=== PATIENT | male | born 1955 | race Caucasian/White ===

== ENCOUNTER 2019-06-12 08:18 | Outpatient (CLI) | payer OTHER, SELFPAY ==
--- NOTE | 2019-06-12 09:00 | EST_ITS ---
Patient Info Name: Yevgeniy Griffith Age: 64 years : 1955 Gender: Male Ht: 69 in Wt: 208 lbs BSA: 2.17 m2 HR: 155 bpm BP: 206 / 78 mmHg Heart Rhythm: Sinus Rhythm Technical Quality: Excellent Exam Date: 06/12/2019 8:38 AM Exam Location: [facility] Patient Status: Outpatient Admit Date: 06/12/2019 Staff Ordering Physician: Matthew Galicia MD Attending Provider: Matthew Galicia MD Referring Physician: Matthew Galicia; Exercise Technologist: Mitali Brambila CRT Exercise Physician: Irina Schultz CEP Exam Type: CA stress test treadmill Study Info Indications ChestPain - A treadmill exercise stress test was performed. History/Risk Factors Hypertension: Yes Dyslipidemia: Yes Diabetic Therapy: Oral Congestive Heart Failure (CHF): No Cardiomyopathy/LV Systolic Dysfunction: No Diabetes Mellitus: Yes COPD: No Tobacco Use: Never Cerebrovascular Disease: No Deep Vein Thrombosis (DVT): None Dialysis: None History/Risk Factors Hypertension. Diabetes. Hypercholesterolemia. Frailty Scale (CSHA): 2: Well Cardiac Arrest: No Summary 1. 1. Negative Suraj exercise stress test for ischemic ST changes by ECG criteria. 2. 2. Good functional capacity, achieving 9 METs of workload. 3. 3. Baseline hypertension. 4. 4. Appropriate HR response to exercise. 5. 5. Appropriate HR recovery at 1 minute post exercise. 6. 6. No imaging with stress testing. Protocol: Suraj Stress ECG Details Stage: REST Duration (min): 0 min : 52 sec Speed (mph): 0.0 Grade (%): 0 HR (bpm): 80 SBP (mmHg): 142 DBP (mmHg): 75 METS: --- Stage: REST Duration (min): 20 min : 57 sec Speed (mph): 0.0 Grade (%): 0 HR (bpm): 96 SBP (mmHg): 142 DBP (mmHg): 75 METS: --- Stage: STAGE 1 Duration (min): 1 min : 0 sec Speed (mph): 1.7 Grade (%): 10 HR (bpm): 108 SBP (mmHg): 142 DBP (mmHg): 75 METS: --- Stage: STAGE 1 Duration (min): 2 min : 0 sec Speed (mph): 1.7 Grade (%): 10 HR (bpm): 114 SBP (mmHg): 142 DBP (mmHg): 75 METS: --- Stage: STAGE 1 Duration (min): 3 min : 0 sec Speed (mph): 1.7 Grade (%): 10 HR (bpm): 116 SBP (mmHg): 189 DBP (mmHg): 86 METS: --- Stage: STAGE 2 Duration (min): 1 min : 0 sec Speed (mph): 2.5 Grade (%): 12 HR (bpm): 123 SBP (mmHg): 189 DBP (mmHg): 86 METS: --- Stage: STAGE 2 Duration (min): 2 min : 0 sec Speed (mph): 2.5 Grade (%): 12 HR (bpm): 132 SBP (mmHg): 189 DBP (mmHg): 86 METS: --- Stage: STAGE 2 Duration (min): 3 min : 0 sec Speed (mph): 2.5 Grade (%): 12 HR (bpm): 136 SBP (mmHg): 206 DBP (mmHg): 78 METS: --- Stage: STAGE 3 Duration (min): 1 min : 0 sec Speed (mph): 3.4 Grade (%): 14 HR (bpm): 145 SBP (mmHg): 206 DBP (mmHg): 78 METS: --- Stage: STAGE 3 Duration (min): 2 min : 0 sec Speed (mph):
== END 2019-06-12 08:19 | disposition home or self-care (01) ==
PROVIDERS: PCP Family Medicine; Visit Provider Family Medicine
DX: I20.9 Angina pectoris, unspecified (principal)
CPT/HCPCS: 93017

== ENCOUNTER 2019-10-24 08:49 | Outpatient (CLI) | payer OTHER, SELFPAY | END 2019-10-24 08:50 | disposition home or self-care (01) | LOC: CHSLAB 08:52 | PROVIDERS: PCP Family Medicine; Visit Provider Specialist | DX: D22.5 Melanocytic nevi of trunk (principal) | CPT/HCPCS: 88305; 88342 ==

== ENCOUNTER 2022-07-13 08:49 | Outpatient (CLI) | payer MEDICARE, OTHER, SELFPAY ==
--- NOTE | ~2022-07-13 | XR_ITS ---
XR chest 2V 07/13/2022 09:13 Indication: Chronic cough Procedure: 2 view chest Comparison: 04/22/2007 Findings: Heart size normal. The lungs are hyperinflated which is consistent with, but not diagnostic of chronic obstructive pulmonary disease. No focal air space disease, pulmonary edema, pleural effu abril or suspected pneumothorax. There are healed right rib fractures. No acute osseous abnormality. Impression: 1: No acute cardiopulmonary disease. Reviewed, dictated and finalized at location B. Impression: 1: No acute cardiopulmonary disease.
== END 2022-07-13 08:50 | disposition home or self-care (01) ==
PROVIDERS: PCP Family Medicine; Visit Provider Family Medicine
DX: R05.3 Chronic cough (principal)
CPT/HCPCS: 71046

== ENCOUNTER 2022-07-28 09:47 | Outpatient (CLI) | payer MEDICARE, OTHER, SELFPAY | END 2022-07-28 09:48 | disposition home or self-care (01) | LOC: CHSCARD 09:50 | PROVIDERS: PCP Family Medicine; Visit Provider Family Medicine | DX: R05.3 Chronic cough (principal) | CPT/HCPCS: 94060; 94726; 94729 ==

== ENCOUNTER 2022-11-03 01:43 | Day surgery (SDC) | payer MEDICARE, OTHER, SELFPAY ==
[2022-10-26 12:57] VITALS: BMI 28.8
[2022-11-03 08:18] VITALS: BP 125/73; PULSE 70; RESP 16; TEMP 36.2; O2SAT 100; BMI 25.9
[2022-11-03] MEDS: LACTATED RINGERS 1,000 ML 150 ML IV CONT (08:29)
[2022-11-03 08:31] LABS: Glucose Point of Care 158 mg/dl (65-105)
--- NOTE | 2022-11-03 08:42 | PM.HPGS ---
History of Present Illness History of Present Illness Consent: Risks, benefits, and alternatives have been discussed and questions answered. Patient agrees to proceed with procedure. Chief complaint: hx colon polyps Narrative: Yevgeniy Griffith is a 67 year old male Presents for screening colonoscopy. Patient reports he had a colonoscopy more than 5 years ago that was performed elsewhere. States he is otherwise in good health his current weight appetite and bowel movements are normal. Patient denies abdominal pain. He has had no bleeding. He reports in his family there are multiple cancers of uncertain primary. Review of Systems Review of Systems: Review of systems noncontributory. [facility] Social History Social History (System 02/24/19 @ 10:25 by Carolyn Jones) Smoking status: Never smoker Substance use type: does not use Living arrangements: alone Spiritual care concerns: No Meds Home Medications and Allergies Home Medications Medication Instructions Recorded Confirmed Type amlodipine 10 mg tablet 10 mg PO DAILY 10/26/22 11/03/22 History atorvastatin 40 mg tablet 40 mg PO DAILY 10/26/22 11/03/22 History glipizide 10 mg tablet 10 mg PO BID 10/26/22 11/03/22 History hydrochlorothiazide 25 mg tablet 25 mg PO DAILY 10/26/22 11/03/22 History metformin 1,000 mg tablet 1,000 mg PO BID 10/26/22 11/03/22 History omeprazole 40 mg capsule,delayed 40 mg PO DAILY 10/26/22 11/03/22 History release sitagliptin phosphate 100 mg 100 mg PO DAILY 10/26/22 11/03/22 History tablet (Januvia) telmisartan 40 mg tablet 40 mg PO DAILY 10/26/22 10/26/22 History Allergies Allergy/AdvReac Type Severity Reaction Status Date / Time No Known Allergies Allergy Verified 11/03/22 08:16 Vital Signs Vital Signs - 24 hr 11/03/22 08:18 Temperature 97.2 F L Pulse Rate 70 Respiratory Rate 16 Blood Pressure 125/73 Pulse Oximetry 100 Oxygen Delivery Room Air Exam Narrative: Physical exam reveals patient to be alert. Vital signs stable. HEENT exam is unremarkable. Patient is anicteric. Lungs are clear to auscultation and percussion. Heart is without murmur or extra sounds. Abdomen bowel sounds are present soft nontender with no organomegaly. Digital external rectal exam normal. Assessment and Plan Assessment and plan (1) History of colon polyps: Code(s): Z86.010 - Personal history of colonic polyps Status: Acute Assessment and Plan: Colonoscopy request because of a history of colon polyps. Plan for surveillance colonoscopy now further recommendations may be given after endoscopy.
[2022-11-03 09:45] VITALS: BP 99/66; PULSE 69; RESP 18; O2SAT 95
[2022-11-03 09:55] VITALS: BP 119/77; PULSE 64; RESP 20; O2SAT 97
[2022-11-03 10:05] VITALS: BP 122/74; PULSE 63; RESP 19; O2SAT 96
== END 2022-11-03 10:14 | disposition home or self-care (01) ==
PROVIDERS: PCP Family Medicine; Visit Provider Internal Medicine Gastroenterology
PROC: 0DJD8ZZ Inspection of Lower Intestinal Tract, Via Natural or Artificial Opening Endoscopic (ICD-10-PCS; CPT 45378; principal; 2022-11-03 09:45)
DX: Z12.11 Encounter for screening for malignant neoplasm of colon (principal); D12.2 Benign neoplasm of ascending colon; K63.5 Polyp of colon; K64.8 Other hemorrhoids; Z79.84 Long term (current) use of oral hypoglycemic drugs
CPT/HCPCS: 45385; 82948; 88305; J2704; J7120

== ENCOUNTER 2024-01-04 09:50 | Outpatient (CLI) | payer MEDICARE, OTHER, SELFPAY ==
--- NOTE | ~2024-01-04 | XR_ITS ---
PA, oblique, and lateral views of the right maxillary CLINICAL HISTORY: Palpable abnormality FINDINGS: No acute fracture or dislocation seen. There is mild degenerative change of the DIP joint o f index finger. Remaining joints are preserved. There is focal soft tissue prominence just dorsal to the second DIP joint. IMPRESSION: Focal soft tissue prominence just dorsal to the second DIP joint, nonspecific. Consider MR to further evaluate for soft tissue mass versus ganglion cyst. Minimal degenerative change right index finger DIP joint. Reviewed, dictated and finalized at location M.
== END 2024-01-04 09:51 | disposition home or self-care (01) ==
PROVIDERS: PCP Family Medicine; Visit Provider Family Medicine
DX: M79.644 Pain in right finger(s) (principal); M79.89 Other specified soft tissue disorders
CPT/HCPCS: 73140